=== PATIENT | female | born 1965 | race Caucasian/White ===

== ENCOUNTER 2016-04-29 21:06 | Emergency (ER) | payer OTHER ==
[~2016-04-29] VITALS: Ht 172.7 cm; Wt 90.7 kg
[~2016-04-29 21:06] MED LIST: LEVO25TA7 PO; LISI-600 PO
[2016-04-29] MEDS ORDERED: ALBUTEROL SULFATE 0.083% 2.5 MG/3 ML VIAL.NEB INH ONE (21:15)
[2016-04-29] MEDS ORDERED: IPRATROPIUM BROM 0.5 MG/2.5 ML VIAL.NEB (ATROVENT) INH ONE (21:15)
[2016-04-29 21:19] VITALS: BP 98/53; PULSE 85; RESP 24; TEMP 98.8; O2SAT 96
--- NOTE | 2016-04-29 21:19 | NUR ---
Patient to ER bed 6 to gown for evaluation. Side rails up. Report given to Sherie.
--- NOTE | 2016-04-29 21:20 | NUR ---
DR. LAI AT BEDSIDE EXAMINING THE PT.
--- NOTE | 2016-04-29 21:29 | NUR ---
RT AT BEDSIDE
--- NOTE | 2016-04-29 21:30 | NUR ---
PT. TO THE ER ON WHEELCHAIR AAOx4 VIA WHEELCHAIR C/O SOB, STATES THAT SHE HAD LUNG BIOPSY YESTERDAY WITH 10% LUNG COLLAPSE, TRACH IN PLACE, HX OF LARYNGEAL CANCER, DENIES PAIN, SpO2 99% , ON INSURANCE SALES SPECIALIST
[2016-04-29 21:42] LABS: ANION GAP 9 (5-15); BASOPHILS % (AUTO) 0.3 % (0.0-2.0); CALCIUM 10.1 mg/dL (8.4-11.0); CHLORIDE 103 mmol/L (98-107); CREATININE 1.54 mg/dL (0.55-1.30); EOSINOPHILS # (AUTO) 0.4 K/uL (0.0-0.4); EOSINOPHILS % (AUTO) 2.7 % (0.0-4.0); GLUCOSE 109 mg/dL (70-99); HEMATOCRIT 29.6 % (36-48); HEMOGLOBIN 9.9 g/dL (12.0-16.0); LYMPHOCYTES # (AUTO) 1.7 K/uL (1.0-5.5); LYMPHOCYTES % (AUTO) 12.8 % (20.5-51.5); MEAN CORPUSCULAR HEMOGLOBIN 30 pg (27-31); MEAN CORPUSCULAR HGB CONC 34 % (32-36); MEAN CORPUSCULAR VOLUME 88 fL (79.0-98.0); MONOCYTES # (AUTO) 0.6 K/uL (0.0-1.0); MONOCYTES % (AUTO) 4.8 % (1.7-9.3); NEUTROPHILS # (AUTO) 10.3 K/uL (1.8-7.7); NEUTROPHILS % (AUTO) 79.4 % (40.0-70.0); PLATELET COUNT (AUTO) 411 K/uL (130-430); POTASSIUM 3.6 mmol/L (3.5-5.1); RED BLOOD CELL COUNT(AUTO) 3.36 MIL/uL (4.2-6.2); RED CELL DISTRIBUTION WIDTH 14.1 % (9.0-15.0); SODIUM SERUM 142 mmol/L (136-145); UREA NITROGEN, BLOOD 14 mg/dL (8-21)
[2016-04-29 21:49] LABS: GFR AFRICAN AMERICAN 46 mL/min (>90)
[2016-04-29 21:51] LABS: ALANINE AMINOTRANSFERASE 14 U/L (12-78); ALBUMIN 3.4 g/dL (3.4-4.8); ASPARTATE AMINOTRANSFERASE 17 U/L (10-37); TOTAL BILIRUBIN 0.2 mg/dL (0.0-1.0); TOTAL PROTEIN, SERUM 7.6 g/dL (6.4-8.3)
[2016-04-29] MEDS ORDERED: ALBU2.5V7 INH (22:09)
--- NOTE | 2016-04-29 22:15 | NUR ---
pt. resting, verbalized comfort, denies SOB, SpO2 100% states that she wants to go home, notified
[2016-04-29 22:50] VITALS: BP 104/53; PULSE 85; RESP 26; TEMP 98.2; O2SAT 94
--- NOTE | 2016-04-29 22:50 | NUR ---
Patient given written and verbal discharge instructions and verbalizes understanding. ER MD discussed with patient the results and treatment provided. Patient in stable condition. ID arm band removed. Rx of Doxycycline given. Patient educated on pain management and to follow up with PMD. Pain Scale 0/10 Opportunity for questions provided and answered.
== END 2016-04-29 22:50 | disposition home or self-care (01) ==
LOC: SED 21:06
DX: J40 Bronchitis, not specified as acute or chronic (principal)
CPT/HCPCS: 36415; 71010; 80053; 84484; 85025; 94640; 99285

== ENCOUNTER 2016-06-08 17:42 | Inpatient (IN) | payer OTHER ==
[~2016-06-08] VITALS: Ht 172.7 cm; Wt 96.6 kg
[~2016-06-08 17:42] MED LIST changes: +ALBU2.5V7 INH
[2016-06-08 17:46] VITALS: BP 132/67; PULSE 90; RESP 20; TEMP 97.6; O2SAT 97
--- NOTE | 2016-06-08 17:51 | NUR ---
Pt placed to ER waiting room in stable condition. Family member at side.
[2016-06-08 18:42] LABS: BASOPHILS % (AUTO) 0.5 % (0.0-2.0); EOSINOPHILS # (AUTO) 0.3 K/uL (0.0-0.4); EOSINOPHILS % (AUTO) 3.9 % (0.0-4.0); HEMATOCRIT 27.5 % (36-48); HEMOGLOBIN 9.7 g/dL (12.0-16.0); LYMPHOCYTES # (AUTO) 1.8 K/uL (1.0-5.5); LYMPHOCYTES % (AUTO) 20.8 % (20.5-51.5); MEAN CORPUSCULAR HEMOGLOBIN 31 pg (27-31); MEAN CORPUSCULAR HGB CONC 35 % (32-36); MEAN CORPUSCULAR VOLUME 86 fL (79.0-98.0); MONOCYTES # (AUTO) 0.4 K/uL (0.0-1.0); MONOCYTES % (AUTO) 4.5 % (1.7-9.3); NEUTROPHILS # (AUTO) 6.1 K/uL (1.8-7.7); NEUTROPHILS % (AUTO) 70.3 % (40.0-70.0); PLATELET COUNT (AUTO) 338 K/uL (130-430); RED BLOOD CELL COUNT(AUTO) 3.18 MIL/uL (4.2-6.2); WHITE BLOOD COUNT (AUTO) 8.6 K/uL (4.8-10.8)
[2016-06-08 18:43] LABS: INR 1.1 (0.8-1.2)
[2016-06-08 18:47] LABS: CALCIUM 9.9 mg/dL (8.4-11.0); CREATININE 1.53 mg/dL (0.55-1.30); POTASSIUM 3.6 mmol/L (3.5-5.1)
[2016-06-08 18:51] LABS: ALBUMIN 3.8 g/dL (3.4-4.8); TOTAL BILIRUBIN 0.3 mg/dL (0.0-1.0)
--- NOTE | 2016-06-08 19:20 | NUR ---
Patient to ER bed 01 to gown for evaluation. Side rails up. Report given to Torito.
--- NOTE | 2016-06-08 19:21 | NUR ---
Patient to ER bed 1 to gown for evaluation. Side rails up. Report given to GAMALIEL Ugarte.
--- NOTE | 2016-06-08 19:35 | NUR ---
pt presents to ED for G-tube placement, pt stated that she followed up with PCP, XR result showed her G-tube was in Sub-Q space, and was recommended to replace G-tube at ER. Trach present, pt ambulatory, A&Ox4, denies SOB or chestpain, denies N/V/D, denies abdominal pain. Current G-tube at mid-abdomen, no bleeding noted. Will continue to monitor
[2016-06-08] MEDS ORDERED: GASTROGRAFIN 120 ML ONE (19:45)
--- NOTE | 2016-06-08 19:50 | NUR ---
MD Ascencio at bedside examining pt
[2016-06-08] MEDS ORDERED: TEMA15CA51 GT (20:07)
[2016-06-08] MEDS ORDERED: LEVO25TA7 GT (20:07)
--- NOTE | 2016-06-08 20:08 | NUR ---
Medication reconciliation completed with information provided by PT. Any prior medication reconciliation on file was reviewed and corrected.
[2016-06-08] MEDS ORDERED: IPRATROPIUM/ALBUTEROL SULFATE 3 ML AMPUL.NEB INH ONE (20:30)
--- NOTE | 2016-06-08 20:30 | NUR ---
Patient will be admitted to care of . Admitted to M/S unit. Will go to room 103A. Belongings list completed. Summary report printed. Report given to Sara ALSTON
--- NOTE | 2016-06-08 20:37 | NUR ---
ADMISSION NOTE Received patient from ER via gurney. Patient admitted with diagnosis of GT malfunction. Patient is awake, alert, oriented X 4. Patient oriented to hospital room, call light, toileting, pain management and safety-teach back done. Patient informed that Dayanara will be her nurse and that their room number is 103a. Personal belongings checked and Belongings List documented. Call light within reach.
[2016-06-08 20:44] VITALS: BP 131/61; PULSE 81; RESP 18; TEMP 98.3; O2SAT 100
[2016-06-08] MEDS: TEMAZEPAM 15 MG CAPSULE GT SCH (21:00)
--- NOTE | 2016-06-08 21:00 | NUR ---
OPENING NOTES PATIENT IS IN BED RESTING. VITAL SIGNS ARE STABLE. NO SIGNS OF DISTRESS. BREATHING IS NON LABORED. G-TUBE IS SECURED TO THE ABDOMEN. IV IS PATIENT AND SHOWS NO SIGNS OF COMPLICATIONS. PATIENT INSTRUCTED TO CALL FOR ASSISTANCE. BED ALARM IS ON. CALL LIGHT IS WITHIN REACH. WILL CONTINUE TO MONITOR.
[2016-06-08 21:01] LABS: BILIRUBIN,URINE NEGATIVE (NEGATIVE); BLOOD, URINE NEGATIVE (NEGATIVE); CLARITY/URINE HAZY (CLEAR); COLOR,URINE YELLOW (YELLOW); GLUCOSE,URINE NEGATIVE (NEGATIVE); KETONES,URINE NEGATIVE (NEGATIVE); LEUKOCYTE ESTERASE ,URINE 2+ (NEGATIVE); NITRITE, URINE NEGATIVE (NEGATIVE); PROTEIN URINE NEGATIVE (NEGATIVE); UROBILINOGEN,URINE 0.2 (0.2-1.0)
[2016-06-08 21:37] LABS: BACTERIA,URINE FEW /HPF (None Seen); RBC,URINE NONE SEEN /HPF (0-3)
[2016-06-08 21:38] LABS: MUCUS,URINE None Seen /LPF (None Seen); YEAST,URINE Few /HPF (None Seen)
--- NOTE | 2016-06-08 21:45 | NUR ---
SPOKE TO DR. LEIVA PATIENT HAD COMPLAINTS OF PAIN. SPOKE WITH DR. LEIVA REGARDING ORDERS FOR PAIN MEDICATION. WILL INPUT NEW ORDERS.
--- NOTE | 2016-06-08 21:52 | NUR ---
PAGED: I PAGED DR. LANGFORD @ 2130 DR. LEIVA DISTRIBUTING CLERK HELENE I SPOKE WITH [employer] ANDRÉS THAT IS THE SPELLING SHE GAVE ME DR. LEIVA CALLED US BACK @ 2139
[2016-06-08] MEDS: MORPHINE 2 MG/ML INJ. SYRINGE IVP PRN (22:04)
[2016-06-08] MEDS: ALBUTEROL SULFATE 0.083% 2.5 MG/3 ML VIAL.NEB INH SCH (23:05)
[2016-06-08] MEDS: IPRATROPIUM BROM 0.5 MG/2.5 ML VIAL.NEB (ATROVENT) INH SCH (23:05)
--- NOTE | 2016-06-08 23:09 | NUR ---
ORAL CARE SWABS PATIENT WAS GIVEN ORAL CARE SWABS.
[2016-06-08 23:53] VITALS: BP 131/61; PULSE 56
[2016-06-09 00:54] VITALS: BP 110/48; PULSE 86; RESP 18; TEMP 97; O2SAT 99
--- NOTE | 2016-06-09 01:10 | NUR ---
ROUNDS PATIENT WAS GIVEN A WARM BLANKET.
[2016-06-09] MEDS: IPRATROPIUM BROM 0.5 MG/2.5 ML VIAL.NEB (ATROVENT) INH SCH ×5 (02:20→23:00)
[2016-06-09] MEDS: ALBUTEROL SULFATE 0.083% 2.5 MG/3 ML VIAL.NEB INH SCH ×5 (02:20→23:00)
[2016-06-09] MEDS: MORPHINE 2 MG/ML INJ. SYRINGE IVP PRN ×5 (02:36→23:42)
[2016-06-09] MEDS: D5/0.45 NS 1,000 ML IV SCH ×2 (02:43→18:55)
--- NOTE | 2016-06-09 03:00 | NUR ---
ROUNDS PATIENT IS IN BED SLEEPING. NO SIGNS OF DISTRESS. BREATHING IS NON LABORED. WILL CONTINUE TO MONITOR. BED ALARM IS ON. CALL LIGHT IS WITHIN REACH.
[2016-06-09 05:04] VITALS: BP 107/56; PULSE 78; RESP 18; TEMP 98.9; O2SAT 99
--- NOTE | 2016-06-09 05:29 | NUR ---
ROUNDS. PATIENT IS IN BED SLEEPING. NO SIGNS OF DISTRESS. BREATHING IS NON LABORED. CALL LIGHT IS WITHIN REACH. BED ALARM IS ON. WILL CONTINUE TO MONITOR.
--- NOTE | 2016-06-09 07:30 | NUR ---
CLOSING NOTES PATIENT IS IN BED RESTING COMFORTABLY AND WATCHING TV. NO SIGNS OF DISTRESS. IV IS PATENT AND SHOWS NO SIGNS OF COMPLICATIONS. BREATHING IS NON LABORED. REPORT GIVEN TO THE MORNING NURSE.
--- NOTE | 2016-06-09 07:35 | NUR ---
AM ROUNDS Pt A/O x4, c/o pain at this time...Pt on 5L oxygen via trach. Pt with GT to Left quad..GT not functioning at this time..Pt aware of GI consult for new GT placement...IVF infusing well to LH...Call light/phone w/in reach..Will cont to monitor
[2016-06-09 08:30] VITALS: BP 99/56; PULSE 72; RESP 15; TEMP 97.6; O2SAT 99
[2016-06-09] MEDS: LEVOTHYROXINE SODIUM 0.025 MG TABLET GT SCH (09:00)
--- NOTE | 2016-06-09 09:28 | NUR ---
Nutrition Update Owen Scale 18 noted. Pt admitted for GT malfunction. Diet: NPO BMI: 32.4 kg/m2 RD to follow per nutrition care standards.
--- NOTE | 2016-06-09 09:50 | NUR ---
CONSULT GI G-TUBE MALFUNCTION DR GUAMAN [phone] S/W GUI OFFICE @ [id number]
--- NOTE | 2016-06-09 10:00 | NUR ---
PATIENT RESTING: Patient resting quietly. No acute distress noted. Vital signs within normal range.
--- NOTE | 2016-06-09 11:07 | NUR ---
CONSULT HEMATOLOGY GTUBE MALFUNCTION DR HATHAWAY [phone] S/W GEO OFFICE @ 3439
[2016-06-09 11:32] VITALS: Ht 172.7 cm; Wt 96.6 kg
--- NOTE | 2016-06-09 12:30 | NUR ---
ASSISTED PT TO BSC WITH NO DIFFICULTY
[2016-06-09 14:46] VITALS: BP 107/58; PULSE 80; RESP 20; TEMP 96.2; O2SAT 100
--- NOTE | 2016-06-09 15:00 | NUR ---
PATIENT RESTING: Patient resting quietly. No acute distress noted. Vital signs within normal range.
[2016-06-09 15:02] VITALS: BP 95/53; PULSE 66; RESP 16; TEMP 98; O2SAT 100
--- NOTE | 2016-06-09 18:00 | NUR ---
ROUNDS PT STABLE...BOYFRIEND AT BEDSIDE..PT AWARE OF GT PLACEMENT TOMORROW, TIME UNKNOWN...IVF INFUSING WELL..O2 MASK TO TRACH IN PLACE....WILL CONT TO MNITOR
[2016-06-09 19:50] VITALS: BP 94/59; PULSE 74; RESP 16; TEMP 98.9; O2SAT 99
--- NOTE | 2016-06-09 19:50 | NUR ---
OPENING NOTES PATIENT IS IN A/OX4. NO SIGNS OF DISTRESS. BREATHING IS NON LABORED. IV IS PATENT AND SHOWS NO SIGNS OF COMPLICATIONS. PATIENT HAS NO COMPLAINTS OF PAIN. PATIENT INSTRUCTED TO CALL FOR ASSISTANCE. CALL LIGHT IS WITHIN REACH. SAFETY MEASURES ARE IN PLACE. PATIENT REFUSED BED ALARM. PATIENT EDUCATED ON THE IMPORTANCE OF BED ALARM AND CALLING FOR ASSISTANCE. PATIENT VERBALIZED UNDERSTANDING. PATIENT INSTRUCTED TO CALL FOR ASSISTANCE. WILL CONTINUE TO MONITOR.
[2016-06-09] MEDS: TEMAZEPAM 15 MG CAPSULE GT SCH (21:00)
--- NOTE | 2016-06-09 21:30 | NUR ---
ROUNDS PATIENT IS IN BED RESTING. NO SIGNS OF DISTRESS. BREATHING IS NON LABORED. SAFETY MEASURES ARE IN PLACE. WILL CONTINUE TO MONITOR.
[2016-06-09] MEDS: IPRATROPIUM BROM 0.5 MG/2.5 ML VIAL.NEB (ATROVENT) INH PRN (21:49)
[2016-06-09] MEDS: ALBUTEROL SULFATE 0.083% 2.5 MG/3 ML VIAL.NEB INH PRN (21:49)
--- NOTE | 2016-06-09 22:02 | NUR ---
ROUNDS REPOSITIONED PATIENT IN BED FOR COMFORT. PATIENT REFUSED THE BED ALARM. EDUCATED PATIENT ON THE IMPORTANCE OF BED ALARM. EDUCATED PATIENT ON THE IMPORTANCE OF CALLING FOR ASSISTANCE. PATIENT VERBALIZED UNDERSTANDING. WILL CONTINUE TO MONITOR.
--- NOTE | 2016-06-10 00:16 | NUR ---
ROUNDS PATIENT WAS REPOSITIONED FOR COMFORT.
[2016-06-10 00:33] VITALS: BP 85/69; PULSE 79; RESP 16; TEMP 98.3; O2SAT 98
--- NOTE | 2016-06-10 02:36 | NUR ---
ROUNDS PATIENT IS IN BED SLEEPING. NO SIGNS OF DISTRESS. BREATHING IS NON LABORED. CALL LIGHT IS WITHIN REACH. SAFETY MEASURES ARE IN PLACE. WILL CONTINUE TO MONITOR.
[2016-06-10] MEDS: MORPHINE 2 MG/ML INJ. SYRINGE IVP PRN ×3 (03:38→22:50)
--- NOTE | 2016-06-10 03:44 | NUR ---
ROUNDS PATIENT HAS COMPLAINTS OF PAIN. WILL GIVE PRN PAIN MEDICATION.
[2016-06-10] MEDS: D5/0.45 NS 1,000 ML IV SCH ×3 (03:51→23:50)
[2016-06-10 04:14] VITALS: BP 85/48; PULSE 74; RESP 17; TEMP 98.3; O2SAT 99
--- NOTE | 2016-06-10 05:33 | NUR ---
ROUNDS PATIENT IS IN BED SLEEPING. BREATHING IS NON LABORED. NO SIGNS OF DISTRESS. CALL LIGHT IS WITHIN REACH. SAFETY MEASURES ARE IN PLACE. WILL CONTINUE TO MONITOR.
[2016-06-10] MEDS: ALBUTEROL SULFATE 0.083% 2.5 MG/3 ML VIAL.NEB INH PRN ×2 (05:59→16:57)
[2016-06-10] MEDS: IPRATROPIUM BROM 0.5 MG/2.5 ML VIAL.NEB (ATROVENT) INH PRN ×2 (05:59→16:58)
--- NOTE | 2016-06-10 06:42 | NUR ---
CLOSING NOTES PATIENT IS IN BED RESTING AND WATCHING TV. NO SIGNS OF DISTRESS. BREATHING IS NON LABORED. IV IS PATENT AND SHOWS NO SIGNS OF COMPLICATIONS. WILL ENDORSE TO THE MORNING NURSE.
[2016-06-10 07:12] LABS: INR 1.1 (0.8-1.2); PROTHROMBIN TIME 11.8 SECS (9.5-12.5)
--- NOTE | 2016-06-10 07:20 | NUR ---
AM ROUNDS Pt A/O, denies pain at this time...Oxygen at 5L via mask to trach..Pt awaiting GT replacement...IVF infusing RH..Call light/phone w/in reach...Will cont to gilmer
[2016-06-10] MEDS ORDERED: fentaNYL CITRATE/PF 100 MCG/2 ML AMP ONE ×2 (07:27)
[2016-06-10] MEDS ORDERED: MIDAZOLAM HCL 5 MG/5 ML VIAL ONE ×2 (07:27→07:28)
--- NOTE | 2016-06-10 08:01 | NUR ---
TRANSPORTED TO GI LAB VIA
[2016-06-10] MEDS ORDERED: SIMETHICONE 40 MG/0.6 ML ML ONE (08:02)
[2016-06-10 08:05] VITALS: BP 92/60; PULSE 72; RESP 16; TEMP 98.4; O2SAT 96
[2016-06-10] MEDS ORDERED: fentaNYL CITRATE/PF 100 MCG/2 ML AMP IVP ONE ×3 (08:32→08:40)
[2016-06-10] MEDS ORDERED: MIDAZOLAM HCL 5 MG/5 ML VIAL IVP ONE ×3 (08:34→08:42)
[2016-06-10] MEDS ORDERED: CEFAZOLIN 1 GM IVPB PREMIX 50 ML IV ONE (09:00)
[2016-06-10] MEDS: LEVOTHYROXINE SODIUM 0.025 MG TABLET GT SCH (09:00)
--- NOTE | 2016-06-10 09:40 | NUR ---
BACK TO ROOM FROM G.I. Pt stable...Abdominal dressing C/D/I...Will review and carry out orders
--- NOTE | 2016-06-10 10:00 | NUR ---
PT STATED THAT SHE IS UNABLE TO TOLERATED TUBE FEEDING THAT [facility] OFFERS PT STATES SHE UNABLE TO TOLERATED FEEDINGS THAT ARE PROVIDED HERE AT [facility]..PT STATES THAT SHE TAKES BOOST AND MIXES IT WITH MILK AND TAKES IT BOLUS VIA GT..PT ANXIOUS TO GO HOME...INFORMED PT THAT I NEED TO PAGE DR BLANCO TO INFORM HIM...
[2016-06-10] MEDS: IPRATROPIUM BROM 0.5 MG/2.5 ML VIAL.NEB (ATROVENT) INH SCH ×4 (11:20→23:28)
[2016-06-10] MEDS: ALBUTEROL SULFATE 0.083% 2.5 MG/3 ML VIAL.NEB INH SCH ×4 (11:20→23:28)
[2016-06-10 11:28] VITALS: BP 103/64; PULSE 74; RESP 16; TEMP 97.2; O2SAT 92
--- NOTE | 2016-06-10 12:00 | NUR ---
ROUNDS PT C/O PAIN..COVERING NURSE TO MEDICATE...RESTING..OXYGEN IN PLACE VIA MASK..WILL CONT TO MONITOR
--- NOTE | 2016-06-10 13:00 | NUR ---
SPOKE WITH DR BLANCO REGARDING FEEDINGS FEEDINGS TO START ON OR AROUND 1630..AND TO HAVE DIETITIAN SPEAK WITH PT AND TO FORMULATE A TUBE FEEDING THAT PT CAN TOLERATE
[2016-06-10] MEDS: MORPHINE 4 MG/ML INJ. SYRINGE IVP PRN ×2 (14:06→18:40)
--- NOTE | 2016-06-10 15:18 | NUR ---
Nutrition Note RD s/w pt at bedside who stated she would like to try Boost Plus supplement diluted w/ whole milk as part of her TF bolus regimen, as pt states she is not interested in trying other [facility] TF formulas as she has had bad experiences in the past w/ similar products (diarrhea/vomiting). RD recommendation: Boost Plus (237 ml carton) x5/day bolus feedings diluted w/ whole milk, Free Water Flush: 200 ml Q3h via GT Provides: 1800 kcal/day, 70 gm protein/day, and 1819 ml free water/day Meets: 93% of lower end of estimated caloric needs and 91% of lower end of estimated protein needs RD s/w pt's primary SANDING LINE OPERATOR regarding recommendation. RD to implement order via TO/RB. RD to continue to follow per nutrition care standards.
[2016-06-10 15:27] VITALS: BP 115/56; PULSE 84; RESP 16; TEMP 96.6; O2SAT 93
--- NOTE | 2016-06-10 16:30 | NUR ---
PT REQUESTING WATER OR ICE CHIP BY MOUTH PAGED DR BLANCO
--- NOTE | 2016-06-10 16:50 | NUR ---
DR BLANCO DID NOT RECOMMEND WATER BUT OKAY WITH ICE CHIPS
--- NOTE | 2016-06-10 17:17 | NUR ---
PT REFUSING BOLUS BOOST VIA GT AT THIS TIME..WAITING FOR BOYFRIEND
--- NOTE | 2016-06-10 17:58 | NUR ---
PT STILL WISHES TO WAIT FOR BOYFRIEND FOR BOLUS FEEDING
[2016-06-10] MEDS: LEVOFLOXACIN 500 MG/D5W 100 ML IV SCH (18:34)
--- NOTE | 2016-06-10 18:44 | NUR ---
BOLUS FEEDING GIVEN PT DID NOT WANT THE FULL AMOUNT..PT ONLY HAD 180ML OF BOOST + 120ML WATER..PT TOLERATED WELL
--- NOTE | 2016-06-10 18:47 | NUR ---
DRESSING CHANGED TO GT SITE, ABDOMINAL BINDER IN PLACE
--- NOTE | 2016-06-10 20:00 | NUR ---
ROUNDS PATIENT RESTING COMFORTABLY IN BED, NOT IN DISTRESS, VITALS STABLE. DENIES ANY PAIN AND DISCOMFORT AT THIS TIME. ASSESSMENT DONE AND DOCUMENTED. SEE FLOWSHEET. NEEDS ATTENDED TO. SAFETY AND FALL PRECAUTION MEASURES IN PLACED. BED IN LOW AND LOCKED POSITION. CALL LIGHT PLACED WITHIN REACH.
--- NOTE | 2016-06-10 21:00 | NUR ---
MEDICATION DUE MEDICATION GIVEN ORDERED, TOLERATED WELL. WILL CONTINUE TO MONITOR.
[2016-06-10] MEDS: TEMAZEPAM 15 MG CAPSULE GT SCH (21:29)
[2016-06-11] VITALS (7 sets, daily range): BP systolic 85–130; BP diastolic 47–61; PULSE 76–91; RESP 17–19; TEMP 97.7–97.9; O2SAT 93–97
--- NOTE | 2016-06-11 | NUR ---
PATIENT RESTING: Patient resting quietly. No acute distress noted. Vital signs within normal range.
[2016-06-11] MEDS: ALBUTEROL SULFATE 0.083% 2.5 MG/3 ML VIAL.NEB INH PRN ×3 (01:51→05:31)
[2016-06-11] MEDS: IPRATROPIUM BROM 0.5 MG/2.5 ML VIAL.NEB (ATROVENT) INH PRN ×3 (01:51→05:31)
--- NOTE | 2016-06-11 02:10 | NUR ---
ROUNDS PATIENT ASLEEP, VITALS STABLE, WILL CONTINUE TO MONITOR.
[2016-06-11] MEDS: ALBUTEROL SULFATE 0.083% 2.5 MG/3 ML VIAL.NEB INH SCH ×4 (02:25→15:49)
[2016-06-11] MEDS: IPRATROPIUM BROM 0.5 MG/2.5 ML VIAL.NEB (ATROVENT) INH SCH ×3 (02:25→15:49)
[2016-06-11] MEDS: MORPHINE 2 MG/ML INJ. SYRINGE IVP PRN (03:30)
--- NOTE | 2016-06-11 04:00 | NUR ---
PATIENT RESTING: Patient resting quietly. No acute distress noted. Vital signs within normal range.
--- NOTE | 2016-06-11 06:55 | NUR ---
CLOSING NOTES PATIENT AWAKE, VITALS STABLE, NO PAIN AND DISCOMFORT AT THIS TIME. BOLUS FEEDING GIVEN, TOLERATED WELL. ALL NEEDS ATTENDED TO. SAFETY MEASURES MAINTAINED. CALL LIGHT PLACED WITH PATIENT.
[2016-06-11] MEDS: MORPHINE 4 MG/ML INJ. SYRINGE IVP PRN ×2 (08:24→12:56)
--- NOTE | 2016-06-11 08:26 | NUR ---
dr calvillo came said ok to be d/c today
--- NOTE | 2016-06-11 08:27 | NUR ---
morphine 4 mg iv given at this time
[2016-06-11] MEDS: LEVOTHYROXINE SODIUM 0.025 MG TABLET GT SCH (09:54)
--- NOTE | 2016-06-11 10:01 | NUR ---
seen by Dr Harp. possible d/c home today
--- NOTE | 2016-06-11 10:01 | NUR ---
due medication given at this time. made comfortable
--- NOTE | 2016-06-11 10:13 | NUR ---
may have ice chips.
--- NOTE | 2016-06-11 10:26 | NUR ---
CALLED PULMONOLOGY CONSULT TO DR CHAUDHARI RE: PNA. LEFT A VOICE MESSAGE @ [id number]
--- NOTE | 2016-06-11 10:27 | NUR ---
Pulmo Consult: for Dr. Elliott, regarding pneumonia, ordered by Dr. Harp, spoke with Lisseth.
--- NOTE | 2016-06-11 15:08 | NUR ---
informed dr marrero regarding consult
--- NOTE | 2016-06-11 15:18 | NUR ---
came to evaluate the patient.
--- NOTE | 2016-06-11 15:25 | NUR ---
ordered stat chest x ray called radiology
--- NOTE | 2016-06-11 16:04 | NUR ---
chest x ray done today
[2016-06-11] MEDS: LEVOFLOXACIN 500 MG/D5W 100 ML IV SCH (16:06)
--- NOTE | 2016-06-11 16:50 | NUR ---
Dr Earl loredo to go home and will call Dr Harp to informed.
[2016-06-11] MEDS ORDERED: ALBUTEROL SULFATE 0.083% 2.5 MG/3 ML VIAL.NEB INH PRN (17:00)
[2016-06-11] MEDS ORDERED: AMOX-423 GT (17:09)
--- NOTE | 2016-06-11 17:30 | NUR ---
transition care documenrs given to patient and signed. has a prescription of augmentin liquid in 400mg/5ml and will take 10cc twice a day via g tube. continue same home medications. iv access removed. [facility] id band removed. and follow up with primary care nurse in one week.
--- NOTE | 2016-06-11 17:50 | NUR ---
patient left in stable condition. with prescription and instructed the patient. goes home with the Boyfriend.
[2016-06-12] MEDS ORDERED: LEVOTHYROXINE SODIUM 0.025 MG TABLET PO SCH (07:00)
== END 2016-06-11 17:50 | disposition home or self-care (01) | DRG 252 ==
LOC: SED 17:42 → SMU 20:00
PROVIDERS: ADMIT Internal Medicine Hospice and Palliative Medicine; ATTEND Internal Medicine Hospice and Palliative Medicine
PROC: 0DH64UZ Insertion of Feeding Device into Stomach, Percutaneous Endoscopic Approach (ICD-10-PCS; principal; 2016-06-10 08:30)
DX: K94.23 Gastrostomy malfunction (principal); J96.10 Chronic respiratory failure, unspecified whether with hypoxia or hypercapnia; J18.9 Pneumonia, unspecified organism; Z93.0 Tracheostomy status; R13.10 Dysphagia, unspecified; C34.90 Malignant neoplasm of unspecified part of unspecified bronchus or lung; Y83.3 Surgical operation with formation of external stoma as the cause of abnormal reaction of the patient, or of later complication, without mention of misadventure at the time of the procedure; E03.9 Hypothyroidism, unspecified; K21.9 Gastro-esophageal reflux disease without esophagitis; K44.9 Diaphragmatic hernia without obstruction or gangrene; Z90.710 Acquired absence of both cervix and uterus; Z85.89 Personal history of malignant neoplasm of other organs and systems; Z85.21 Personal history of malignant neoplasm of larynx; Z87.891 Personal history of nicotine dependence
CPT/HCPCS: 36415; 43246; 71010; 80053; 81000-TC; 85025; 85610-TC; 85730-TC; 87086; 94640; 94760; 99285; J0690; J1956; J2250; J2270; J3010; Q9963

== ENCOUNTER 2017-03-20 11:20 | Emergency (ER) | payer OTHER ==
[~2017-03-20] VITALS: Ht 172.7 cm; Wt 97.5 kg
[~2017-03-20 11:20] MED LIST changes: +LEVO25TA7 GT; -LISI-600 PO; +TEMA15CA51 GT
[2017-03-20 12:27] VITALS: BP_SYST 135
[2017-03-20 16:18] LABS: BASOPHILS # (AUTO) 0.1 K/uL (0.0-0.2); BASOPHILS % (AUTO) 1.7 % (0.0-2.0); EOSINOPHILS # (AUTO) 0.5 K/uL (0.0-0.4); EOSINOPHILS % (AUTO) 6.9 % (0.0-4.0); HEMOGLOBIN 10.8 g/dL (12.0-16.0); LYMPHOCYTES # (AUTO) 1.5 K/uL (1.0-5.5); LYMPHOCYTES % (AUTO) 20.3 % (20.5-51.5); MEAN CORPUSCULAR HEMOGLOBIN 32 pg (27-31); MEAN CORPUSCULAR HGB CONC 34 % (32-36); MEAN CORPUSCULAR VOLUME 95 fL (79.0-98.0); MONOCYTES # (AUTO) 0.6 K/uL (0.0-1.0); MONOCYTES % (AUTO) 8.3 % (1.7-9.3); NEUTROPHILS # (AUTO) 4.6 K/uL (1.8-7.7); NEUTROPHILS % (AUTO) 62.8 % (40.0-70.0); PLATELET COUNT (AUTO) 244 K/uL (130-430); RED BLOOD CELL COUNT(AUTO) 3.36 MIL/uL (4.2-6.2); RED CELL DISTRIBUTION WIDTH 12.7 % (9.0-15.0); WHITE BLOOD COUNT (AUTO) 7.3 K/uL (4.8-10.8)
[2017-03-20 16:31] LABS: PROTHROMBIN TIME 10.4 SECS (9.5-12.5)
[2017-03-20 16:58] LABS: CALCIUM 8.1 mg/dL (8.4-11.0); CREATININE 1.33 mg/dL (0.55-1.30); POTASSIUM 4.8 mmol/L (3.5-5.1)
[2017-03-20 17:03] LABS: ALBUMIN 3.3 g/dL (3.4-4.8); TOTAL BILIRUBIN 0.2 mg/dL (0.0-1.0)
[2017-03-20 17:06] VITALS: BP_SYST 110
== END 2017-03-20 17:06 | disposition home or self-care (01) ==
LOC: SED 11:20
DX: L03.115 Cellulitis of right lower limb (principal); J45.909 Unspecified asthma, uncomplicated; Z85.118 Personal history of other malignant neoplasm of bronchus and lung; Z90.710 Acquired absence of both cervix and uterus
CPT/HCPCS: 36415; 71045; 80053; 85025; 85379; 85610-TC; 85730-TC; 93005; 93970; 99285